=== PATIENT | male | born 1995 | race American Indian/Alaskan Native ===

== ENCOUNTER 2020-08-02 17:36 | Emergency (ER) | payer SELFPAY ==
[2020-08-02 19:25] VITALS: BP 150/98
[2020-08-02] MEDS ORDERED: ONDANSETRON 4 MG ODT TAB PO ONE (21:03)
[2020-08-02] MEDS ORDERED: FAMOTIDINE 20 MG TAB PO ONE (21:03)
[2020-08-02] MEDS ORDERED: ALUM-MAG HYDROXIDE-SIMETHICONE 200-200-20MG/5ML ORAL LIQD 30 ML PO ONE (21:03)
[2020-08-02] MEDS ORDERED: LIDOCAINE VISCOUS 2% 15 ML ORAL LIQD PO ONE (21:03)
[2020-08-02] MEDS ORDERED: DICYCLOMINE 20 MG TAB PO ONE (21:03)
[2020-08-02 21:26] LABS: Basophils # (Auto) 0.1 K/mm3 (0.0-0.1); Basophils % (Auto) 0.4 % (0.0-1.8); Hemoglobin 15.5 gm/dl (11.8-15.2); Lymphocytes # (Auto) 2.7 K/mm3 (1.2-5.4); Lymphocytes % (Auto) 19.9 % (13.4-35.0); Mean Corpuscular HGB Conc 35 % (32-34); Mean Corpuscular Volume 85 fl (84-94); Monocytes # (Auto) 1.3 K/mm3 (0.0-0.8); Monocytes % (Auto) 9.3 % (0.0-7.3); Platelet Count 368 K/mm3 (140-440); Red Blood Count 5.19 M/mm3 (3.65-5.03); Red Cell Distribution Width 13.4 % (13.2-15.2)
[2020-08-02 21:49] LABS: Alanine Aminotransferase 75 units/L (7-56); BUN/Creatinine Ratio 24; Blood Urea Nitrogen 22 mg/dL (9-20); Calcium 10.3 mg/dL (8.4-10.2); Hemolysis Index 24
[2020-08-02] MEDS ORDERED: SODIUM CHLORIDE 0.9% 1000 ML 1,000 ML IV ONE (21:55)
--- NOTE | 2020-08-02 22:59 | Ultrasound Report ---
ULTRASOUND ABDOMEN, LIMITED (RIGHT UPPER QUADRANT) INDICATION: Epigastric pain COMPARISON: None available. LIMITATIONS: None FINDINGS: Pancreas: Not well visualized Liver: Moderate fatty infiltration is seen. Liver is not significantly enlarged and has a length of 1 5.5 cm Gallbladder: Normal. Bile ducts: Normal. Common Bile Duct measures 5 mm. Right Kidney: Visualized portions show no abnormality. Free fluid: None. Additional Findings: None. IMPRESSION: No acute abnormalities are seen. Signer Name: Blas Barreto MD Signed: 08/02/2020 10:55 PM Workstation Name: [id number]
--- NOTE | 2020-08-02 23:09 | Emergency Department Report ---
ED Abdominal Pain HPI - General Chief Complaint: Abdominal Pain Stated Complaint: VOMITING Source: patient Mode of arrival: Ambulatory Limitations: No Limitations - History of Present Illness Initial Comments: Patient is a 24-year-old -[place] male with no past medical history presents to the ED with complaint of acute onset persistent epigastric pain, intractable nausea and vomiting for the last 4 days. Patient states that he has not been able to keep anything down the last 2 days worse in the last 12 hours. Patient states that no one else at home is had similar symptoms. Patient denies fever, chills, diarrhea, chest pain, shortness of breath, lightheadedness, dizziness, syncope, cough, sore throat, nasal and sinus congestion, dysuria, urinary frequency and urgency, hematuria or testicular pain and hematemesis. MD Complaint: abdominal pain -: Sudden, days(s) (4) Location: RUQ, epigastric Radiation: RUQ, epigastric Migration to: no migration Severity: moderate Severity scale (0 -10): 6 Quality: cramping Consistency: constant Improves With: nothing Worsens With: eating, vomiting Context: possible food poisoning Associated Symptoms: denies other symptoms, nausea, vomiting, anorexia. denies: diarrhea, fever, chills, dysuria, hematemesis, hematochezia, melena, hematuria, syncope, other - Related Data Previous Rx's Medication Instructions Recorded Last Taken Type Acetaminophen/Codeine [Tylenol 1 tab PO Q6H PRN #12 tab 07/11/18 Unknown Rx /Codeine # 3 tab] Sulfamethoxazole/Trimethoprim 1 each PO BID #14 tablet 07/11/18 Unknown Rx [Bactrim DS TAB] Dicyclomine [Bentyl] 20 mg PO Q6H PRN #24 tablet 08/02/20 Unknown Rx Famotidine [Pepcid] 20 mg PO Q12H #30 tablet 08/02/20 Unknown Rx Ondansetron [Zofran Odt] 4 mg PO Q6HR PRN #20 tab.rapdis 08/02/20 Unknown Rx Allergies Allergy/AdvReac Type Severity Reaction Status Date / Time No Known Allergies Allergy Verified 10/18/15 10:17 ED Review of Systems ROS: Stated complaint: VOMITING Other details as noted in HPI Constitutional: denies: chills, fever Eyes: denies: eye pain, eye discharge, vision change ENT: denies: ear pain, throat pain Respiratory: denies: cough, shortness of breath, wheezing Cardiovascular: denies: chest pain, palpitations Endocrine: no symptoms reported Gastrointestinal: abdominal pain (Epigastric pain), nausea, vomiting. denies: diarrhea, constipation, hematemesis, hematochezia Genitourinary: denies: urgency, dysuria Musculoskeletal: denies: back pain, joint swelling, arthralgia Skin: denies: rash, lesions Neurological: denies: headache, weakness, paresthesias Psychiatric: denies: anxiety, depression Hematological/Lymphatic: denies: easy bleeding, easy bruising ED Past Medical Hx - Past Medical History Previous Medical History?: No - Surgical History Past Surgical History?: No - Social History Smoking Status: Never Smoker Substance Use Type: Marijuana - Medications Home Medications: Home Medications Medication Instructions Recorded Confirmed Last Taken Type Acetaminophen/Codeine [Tylenol 1 tab PO Q6H PRN #12 tab 07/11/18 Unknown Rx /Codeine # 3 tab] Sulfamethoxazole/Trimethoprim 1 each PO BID #14 tablet 07/11/18 Unknown Rx [Bactrim DS TAB] Dicyclomine [Bentyl] 20 mg PO Q6H PRN #24 tablet 08/02/20 Unknown Rx Famotidine [Pepcid] 20 mg PO Q12H #30 tablet 08/02/20 Unknown Rx Ondansetron [Zofran Odt] 4 mg PO Q6HR PRN #20 tab.rapdis 08/02/20 Unknown Rx ED Physical Exam - General Limitations: No Limitations General appearance: alert, in no apparent distress - Head Head exam: Present: atraumatic, normocephalic, normal inspection - Eye Eye exam: Present: normal appearance, PERRL, EOMI Pupils: Present: normal accommodation - ENT ENT exam: Present: normal exam, normal orophraynx, mucous membranes moist, TM's normal bilaterally, normal external ear exam - Neck Neck exam: Present: normal inspection, full ROM - Respiratory Respiratory exam: Present: normal lung sounds bilaterally. Absent: respiratory distress, wheezes, rales, rhonchi, chest wall tenderness, accessory muscle use, decreased breath sounds, prolonged expiratory - Cardiovascular Cardiovascular Exam: Present: normal rhythm, tachycardia, normal heart sounds. Absent: systolic murmur, diastolic murmur, rubs, gallop - GI/Abdominal GI/Abdominal exam: Present: soft, tenderness (Palpable mild epigastric and right upper quadrant tenderness), normal bowel sounds. Absent: guarding, rebound, hyperactive bowel sounds, hypoactive bowel sounds, organomegaly - Extremities Exam Extremities exam: Present: normal inspection, full ROM, normal capillary refill - Back Exam Back exam: Present: normal inspection, full ROM. Absent: tenderness, CVA tenderness (R), CVA tenderness (L), muscle spasm, paraspinal tenderness, vertebral tenderness, rash noted - Neurological Exam Neurological exam: Present: alert, oriented X3, CN II-XII intact, normal gait, reflexes normal - Psychiatric Psychiatric exam: Present: normal affect, normal mood - Skin Skin exam: Present: warm, dry, intact, normal color. Absent: rash ED Course Vital Signs 08/02/20 19:24 Temperature 99.3 F Pulse Rate 105 H Respiratory 17 Rate Blood Pressure 150/98 O2 Sat by Pulse 97 Oximetry ED Medical Decision Making - Lab Data Result diagrams: 08/02/20 21:19 08/02/20 21:19 - Radiology Data Radiology results: report reviewed, image reviewed [facility] [address] [place] [address] Ultrasound Report Signed Patient: ROSLAIND CHRISTENSEN MR #: [id number] : 1995 Acct:[id number] Age/Sex: 24 / M ADM Date: 08/02/20 Loc: ED Attending Dr: Ordering Physician: OSVALDO RENAE Date of Service: 08/02/20 Procedure(s): US abdomen limited Accession Number(s): [id number] cc: OSVALDO RENAE ULTRASOUND ABDOMEN, LIMITED (RIGHT UPPER QUADRANT) INDICATION: Epigastric pain COMPARISON: None available. LIMITATIONS: None FINDINGS: Pancreas: Not well visualized Liver: Moderate fatty infiltration is seen. Liver is not significantly enlarged and has a length of 15.5 cm Gallbladder: Normal. Bile ducts: Normal. Common Bile Duct measures 5 mm. Right Kidney: Visualized portions show no abnormality. Free fluid: None. Additional Findings: None. IMPRESSION: No acute abnormalities are seen. Signer Name: Blas Barreto MD Signed: 08/02/2020 10:55 PM Workstation Name: [id number] Transcribed By: Dictated By: Blas Barreto MD Electronically Authenticated By: Blas Barreto MD Signed Date/Time: 08/02/202254 DD/ 52 TD/TT: - Medical Decision Making This is a 24-year-old -[place] male with no past medical history presents to the ED with complaint of acute onset persistent epigastric pain, intractable nausea and vomiting for the last 4 days. Patient states that he has not been able to keep anything down the last 2 days worse in the last 12 hours. Patient states that no one else at home is had similar symptoms. In the ED, patient is alert and oriented x3 and is not in any distress but tachycardic and afebrile in triage. Patient was treated in the ED with antiemetics, antacids and antispasmodics. Patient also received normal saline 1 L IV bolus x1. Lab test results were reviewed and are all nonactionable except for acute leukocytosis of 13,600, BUN of 21 and elevated transaminitis of AST of 51 and ALT of 75. Gallbladder ultrasound showed no acute abnormalities of the gallbladder or global gallbladder wall thickness. On reevaluation, patient felt better, nausea and vomiting resolved and patient was able to keep oral fluids in the ED. Patient was discharged home on antiemetic medications as well as antacids and was advised to maintain a clear liquid diet for 12 to 24 hours, while taking medications as needed and drinking plenty of fluids. Patient was advised to follow-up with his primary care physician in 3 to 5 days for reevaluation or return to the ED immediately if symptoms get worse - Differential Diagnosis GERD; Gastroenteritis; Gastritis; Dehydration Critical care attestation.: If time is entered above; I have spent that time in minutes in the direct care of this critically ill patient, excluding procedure time. ED Disposition Clinical Impression: Acute gastroenteritis, Nausea and vomiting in adult patient, Dehydration Disposition: DC-01 TO HOME OR SELFCARE Is pt being admited?: No Does the pt Need Aspirin: No Condition: Stable Instructions: Dehydration, Adult, [id number], Viral Gastroenteritis, Adult, [id number], Nausea and Vomiting, Adult, [id number] Additional Instructions: All lab test results were reviewed and are all nonactionable except for signs of viral syndrome characterized by transaminitis which is elevation of liver enzymes. It also showed elevated BUN level characteristic of dehydration. The gallbladder ultrasound showed no acute abnormalities in the gallbladder or gallbladder wall. Therefore maintain a clear liquid diet for 24 to 48 hours, take medications as needed and drink plenty of fluids. Follow-up with your primary care physician in 5 to 7 days for reevaluation. Return to the ED immediately if symptoms get worse. Prescriptions: Dicyclomine [Bentyl] 20 mg PO Q6H PRN #24 tablet PRN Reason: abdominal pain Famotidine [Pepcid] 20 mg PO Q12H #30 tablet Ondansetron [Zofran Odt] 4 mg PO Q6HR PRN #20 tab.rapdis PRN Reason: Nausea Referrals: [facility] [Provider Group] - 3-5 Days Forms: Work/School Release Form(ED) Time of Disposition: 23:07 Print Language: KINYARWANDA
== END 2020-08-02 23:55 | disposition home or self-care (01) ==
LOC: ED 17:36
DX: E86.0 Dehydration (principal); K52.9 Noninfective gastroenteritis and colitis, unspecified; R11.2 Nausea with vomiting, unspecified; F12.90 Cannabis use, unspecified, uncomplicated; Z79.899 Other long term (current) drug therapy
CPT/HCPCS: 36415; 76705; 80053; 83690; 85025; 96360; 99284; J7030; Q0162